=== PATIENT | male | born 1965 | race African-American/Black ===

== ENCOUNTER 2018-08-25 10:55 | Inpatient (IN) | payer OTHER ==
[2018-08-25 11:05] VITALS: BMI 22.2
--- NOTE | 2018-08-25 12:48 | HP ---
COWS - Scale Resting Pulse: 0= [place] 80 or Below Sweatin= Chills/Flushing Restless Observation: 1= Difficult to Sit Still Pupil Size: 1= Pupils >than Normal Bone or Joint Aches: 2= Severe Diffuse Aches Runny Nose/ Eye Tearin= Runny Nose/Eyes GI Upset > 30mins: 2= Nausea/Diarrhea Tremor Observation: 2= Slight Tremor Visible Yawning Observation: 2= >3x During Session Anxiety or Irritability: 2=Irritable/Anxious Goose Flesh Skin: 0=Smooth Skin COWS Score: 15 CIWA Score Nausea/Vomitin Muscle Tremors: 2 Anxiety: 2 Agitation: 2 Paroxysmal Sweats: 1-Minimal Palms Moist Orientation: 0-Oriented Tacttile Disturbances: 1-Very Mild Itch/Numbness Auditory Disturbances: 1-Very Mild Visual Disturbances: 0-None Headache: 2-Mild CIWA-Ar Total Score: 13 - Admission Criteria [facility]ASAS Guidelines: Admission for Medically Managed Detox: Requires at least one of the followin. CIWA greater than 12 2. Seizures within the past 24 hours 3. Delirium tremens within the past 24 hours 4. Hallucinations within the past 24 hours 5. Acute intervention needed for co occurring medical disorder 6. Acute intervention needed for co occurring psychiatric disorder 7. Severe withdrawal that cannot be handled at a lower level of care (continued vomiting, continued diarrhea, abnormal vital signs) requiring intravenous medication and/or fluids 8. Patient presents the following: CIWA greater than 12 Admission Criteria Met: Admission criteria met Admission ROS [facility] Chief Complaint: i need help to stop heroin,alcohol,and cocaine Allergies/Adverse Reactions: Allergies Allergy/AdvReac Type Severity Reaction Status Date / Time Penicillins Allergy Severe Difficulty Verified 08/25/18 12:10 Breathing History of Present Illness: this 52 years old with heroin,alcohol and cocaine dependence,seeing detox, withdrawal symptom,last detox 10/20/15 to 10/24/15 [facility] and rehab 10/24/15 to 11/04/17 history of head injury after using drug on 08/23/18 seen at [facility] ,had cat scan done was told to be negative nicotine dependence weight loss longest period of sobriety 9 months Exam Limitations: No Limitations - Ebola screening Have you traveled outside of the country in the last 21 days: No Have you had contact with anyone from an Ebola affected area: No Have you been sick,other than usual withdrawal symptoms: No Do you have a fever: No - Review of Systems Constitutional: Chills, Loss of Appetite, Malaise, Night Sweats, Changes in sleep, Unintentional Wgt. Loss EENT: reports: Tearing, Nose Congestion, Other (abrasion of frontal area) Respiratory: reports: No Symptoms reported Cardiac: reports: No Symptoms Reported GI: reports: Diarrhea, Nausea, Abdominal cramping : reports: No Symptoms Reported Musculoskeletal: reports: Back Pain, Joint Pain, Muscle Pain, Joint Stiffness Integumentary: reports: Dryness Neuro: reports: Headache, Tremors Endocrine: reports: No Symptoms Reported Hematology: reports: No Symptoms Reported Psychiatric: reports: No Sypmtoms Reported, Judgement Intact, Mood/Affect Appropiate, Orientated x3 Patient History - Patient Medical History Hx Asthma: Yes (childhood asthma) Hx Chronic Obstructive Pulmonary Disease (COPD): No Hx Cancer: No Hx Cardiac Disorders: No Hx Hypertension: No Hx Hypercholesterolemia: No Hx Pacemaker: No HX Cerebrovascular Accident: No Hx Seizures: No Hx Dementia: No Hx Diabetes: No Hx Gastrointestinal Disorders: No Hx Liver Disease: No Hx Genitourinary Disorders: No Hx Sexually Transmitted Disorders: No Hx Renal Disease (ESRD): No Hx Thyroid Disease: No Hx Human Immunodeficiency Virus (HIV): No (last 04/26 negative) Hx Hepatitis C: No Hx Depression: No Hx Suicide Attempt: No Hx Bipolar Disorder: No Hx Schizophrenia: No Other Medical History: no suicidal,no homicidal,head injury on 08/23/18 [facility] - Patient Surgical History Past Surgical History: No Hx Neurologic Surgery: No Hx Cataract Extraction: No Hx Cardiac Surgery: No Hx Lung Surgery: No Hx Breast Surgery: No Hx Breast Biopsy: No Hx Abdominal Surgery: No Hx Appendectomy: No Hx Cholecystectomy: No Hx Genitourinary Surgery: No Hx Section: No Hx Orthopedic Surgery: No Anesthesia Reaction: No - PPD History Previous Implant?: Yes Documented Results: Negative w/proof Implanted On Prior [facility] Admission?: Yes Date: 10/22/15 Results: 0 mm PPD to be Administered?: Yes - Smoking Cessation Smoking history: Current every day smoker Have you smoked in the past 12 months: Yes Aproximately how many cigarettes per day: 20 Hx Chewing Tobacco Use: No Initiated information on smoking cessation: Yes 'Breaking Loose' booklet given: 08/25/18 - Substance & Tx. History Hx Alcohol Use: Yes Hx Substance Use: Yes Substance Use Type: Alcohol, Cocaine, Heroin Hx Substance Use Treatment: Yes ([facility] 10/20/15 to 08/24/16 detox and 10/24/15 to 11/04/15) - Substances Abused Heroin Route: Injection Frequency: Daily Amount used: 4 BAGS Age of first use: 21 Date of Last Use: 08/23/18 Alcohol Route: Oral Frequency: Daily Amount used: 1/2 PINT OF VODKA, 6 CANS OF BEER (16 OUNCES) Age of first use: 14 Date of Last Use: 08/25/18 Cocaine Route: Inhalation Frequency: 1-2 times per week Amount used: 1 DIME Age of first use: 23 Date of Last Use: 08/22/18 Family Disease History - Family Disease History Family History: Denies Admission Physical Exam S - Vital Signs Vital Signs: Vital Signs - 24 hr 08/25/18 10:59 Temperature 97.4 F L Pulse Rate 71 Respiratory 18 Rate Blood Pressure 127/80 - Physical General Appearance: Yes: Moderate Distress, Tremorous, Irritable, Sweating, Anxious HEENTM: Yes: Normal ENT Inspection, JO-ANN, Pharynx Normal, Other (abrasion of frontal area) Respiratory: Yes: Lungs Clear, Normal Breath Sounds, No Respiratory Distress Neck: Yes: Within Normal Limits, Supple, Trachea in good position Breast: Yes: Within Normal Limits Cardiology: Yes: Within Normal Limits, Regular Rhythm, Regular Rate, S1, S2 Abdominal: Yes: Within Normal Limits, Normal Bowel Sounds, Non Tender, Flat, Soft Genitourinary: Yes: Within Normal Limits Back: Yes: Muscle Spasm Musculoskeletal: Yes: full range of Motion, Back pain, Muscle Pain Extremities: Yes: Tremors Neurological: Yes: sales promoter II-XII NML intact, Fully Oriented, Alert, Motor Strength 5/5 Integumentary: Yes: Dry Lymphatic: Yes: Within Normal Limits - Diagnostic (1) Opioid dependence with withdrawal Current Visit: Yes Status: Acute (2) Alcohol dependence with uncomplicated withdrawal Current Visit: No Status: Acute (3) Cocaine dependence Current Visit: Yes Status: Acute Qualifiers: Substance use status: uncomplicated Qualified Code(s): F14.20 - Cocaine dependence, uncomplicated (4) Asthma Current Visit: No Status: Chronic Qualifiers: Asthma severity: mild Asthma persistence: intermittent Asthma complication type: uncomplicated (5) Nicotine dependence Current Visit: No Status: Chronic Qualifiers: Nicotine product type: cigarettes Substance use status: uncomplicated Qualified Code(s): F17.210 - Nicotine dependence, cigarettes, uncomplicated (6) Syncope Current Visit: Yes Status: Acute (7) History of head injury Current Visit: Yes Status: Acute (8) Abrasion Current Visit: Yes Status: Acute Cleared for Admission [facility] - Detox or Rehab [facility] Level of Care: Medically Managed Detox Regimen/Protocol: Methadone/Librium [facility] Breath Alcohol Content Breath Alcohol Content: 0.041 Urine Drug Screen - Results Drug Screen Negative: No Urine Drug Screen Results: PETER-Cocaine, OPI-Opiates, OXY-Oxycodone, FEN-Fentanyl
[2018-08-25] MEDS ORDERED: LOPERAMIDE HCL 2 MG CAPSULE PO PRN (12:58)
[2018-08-25] MEDS ORDERED: P-EPHED 60MG/TRIPROLIDI 2.5MG TABLET PO PRN (12:58)
[2018-08-25] MEDS ORDERED: hydrOXYzine PAMOATE 25 MG CAPSULE (FP) PO PRN (12:58)
[2018-08-25] MEDS ORDERED: MAGNESIUM CITRATE 300 ML BOTTLE PO PRN (12:58)
[2018-08-25] MEDS ORDERED: MENTHOL/PHENOL 1 EACH UD MM PRN (12:58)
[2018-08-25] MEDS ORDERED: chlordiazePOXIDE HCL 25 MG CAPSULE PO PRN (12:58)
[2018-08-25] MEDS ORDERED: guaiFENesin/D-METHORPHAN HB 10 ML UNIT-DOSE CUPS PO PRN (12:58)
[2018-08-25] MEDS ORDERED: IBUPROFEN 400 MG TABLET (FP) PO PRN (12:58)
[2018-08-25] MEDS ORDERED: MAGNESIUM HYDROX 2400MG/30ML ORAL SUSPENSION 30 ML CUP PO PRN (12:58)
[2018-08-25] MEDS ORDERED: MAG HYDROX/AL HYDROX/SIMETH 30 ML UNIT-DOSE CUP PO PRN (12:58)
[2018-08-25] MEDS ORDERED: METHADONE HCL 10 MG TABLET (FOR DETOX USE ONLY) PO ONE ×2 (14:15→23:00)
[2018-08-25] MEDS ORDERED: TRIMETHOBENZAMIDE HCL 200MG/2ML INJ IM ONE (16:14)
[2018-08-25] MEDS: BACITRACIN 0.9 GM PACKET TP SCH ×2 (16:40→23:10)
[2018-08-25] MEDS: chlordiazePOXIDE HCL 25 MG CAPSULE PO SCH ×2 (16:41→23:10)
[2018-08-25] MEDS ORDERED: MELATONIN 5 MG TABLETS PO PRN (22:00)
[2018-08-25] MEDS: THIAMINE HCL 100 MG TABLET (FP) PO SCH (23:09)
[2018-08-25 23:32] LABS: URINE APPEARANCE TURBID; URINE BILIRUBIN NEGATIVE (<2.0 mg/dL); URINE COLOR AMBER; URINE GLUCOSE (UA) 3+ (NEGATIVE); URINE KETONE 1+ (NEGATIVE); URINE LEUK ESTERASE 1+ (NEGATIVE); URINE NITRITE NEGATIVE (NEGATIVE); URINE PROTEIN 1+ (NEGATIVE); URINE UROBILINOGEN 4.0 E.U/dl mg/dL (0.2-1.0)
[2018-08-25 23:44] LABS: EPI CELLS RARE /HPF (FEW); URINE BACTERIA MANY /hpf (NONE SEEN); URINE MUCUS MODERATE
[2018-08-26] MEDS: chlordiazePOXIDE HCL 25 MG CAPSULE PO SCH ×4 (05:08→22:41)
[2018-08-26] MEDS ORDERED: METHADONE HCL 10 MG TABLET (FOR DETOX USE ONLY) PO SCH (10:00)
[2018-08-26] MEDS: BACITRACIN 0.9 GM PACKET TP SCH ×2 (10:42→22:41)
[2018-08-26] MEDS: PRENATAL VITAMINS W/ FOLIC ACID TABLET (FP) PO SCH (10:42)
[2018-08-26 10:55] LABS: HEMATOCRIT 48.1 % (35.4-49); HEMOGLOBIN 15.4 GM/dL (11.7-16.9); MCH 28.1 pg (25.7-33.7); MEAN CELL VOLUME 87.8 fl (80-96); MEAN PLT VOLUME 9.1 fl (7.5-11.1); PLATELET COUNT 275 K/MM3 (134-434); RBC 5.47 M/mm3 (4.00-5.60); RDW 14.2 % (11.9-15.9); WHITE BLOOD COUNT 6.2 K/mm3 (4.0-10.0)
[2018-08-26 11:00] LABS: ALBUMIN 3.7 g/dl (3.4-5.0); ALK PHOS 101 U/L (45-117); ANION GAP 9 MMOL/L (8-16); BILIRUBIN,TOTAL 1.9 mg/dL (0.2-1); BLOOD UREA NITROGEN 13 mg/dL (7-18); CALCIUM 9.4 mg/dL (8.5-10.1); CHLORIDE 101 mmol/L (98-107); CO2 27 mmol/L (21-32); CREATININE 0.7 mg/dL (0.55-1.3); GLUCOSE,RANDOM 105 mg/dL (74-106); SGOT/AST 48 U/L (15-37); SGPT/ALT 33 U/L (13-61); SODIUM 137 mmol/L (136-145); TOT PROT 7.5 g/dl (6.4-8.2)
--- NOTE | 2018-08-26 11:01 | PN ---
[facility] CI[facility] - CIWA Score Nausea/Vomitin Muscle Tremors: 2 Anxiety: 2 Agitation: 2 Paroxysmal Sweats: 2 Orientation: 0-Oriented Tacttile Disturbances: 2-Mild Itch/Numbness/Burn Auditory Disturbances: 0-None Visual Disturbances: 0-None Headache: 1-Very Mild CIWA-Ar Total Score: 13 [facility] COWS - Scale Resting Pulse: 0= [place] 80 or Below Sweatin= Chills/Flushing Restless Observation: 1= Difficult to Sit Still Pupil Size: 0= Normal to Room Light Bone or Joint Aches: 2= Severe Diffuse Aches Runny Nose/ Eye Tearin= Nasal Congestion GI Upset > 30mins: 2= Nausea/Diarrhea Tremor Observation of Outstretched Hands: 2= Slight Tremor Visible Yawning Observation: 0= None Anxiety or Irritability: 1=Feels Anxious/Irritable Goose Flesh Skin: 0=Smooth Skin COWS Score: 10 [facility] Progress Note (SOAP) Subjective: Interrupted sleep, abdominal cramps and malaise Objective: 08/26/18 10:59 Vital Signs 08/26/18 08/26/18 08/26/18 03:30 06:00 09:24 Temperature 98.4 F 98.2 F Pulse Rate 58 L 58 L Respiratory 18 18 18 Rate Blood Pressure 142/64 133/78 Laboratory Last Values Urine Color Cora 08/25/18 15:42 Urine Appearance Turbid 08/25/18 15:42 Urine pH 5.0 (5.0-8.0) 08/25/18 15:42 Ur Specific [place] 1.022 (1.010-1.035) 08/25/18 15:42 Urine Protein 1+ (NEGATIVE) H 08/25/18 15:42 Urine Glucose (UA) 3+ (NEGATIVE) H 08/25/18 15:42 Urine Ketones 1+ (NEGATIVE) H 08/25/18 15:42 Urine Blood 2+ (NEGATIVE) H 08/25/18 15:42 Urine Nitrite Negative (NEGATIVE) 08/25/18 15:42 Urine Bilirubin Negative (<2.0 mg/dL) 08/25/18 15:42 Urine Urobilinogen 4.0 e.u/dl mg/dL (0.2-1.0) 08/25/18 15:42 Ur Leukocyte Esterase 1+ (NEGATIVE) H 08/25/18 15:42 Urine WBC (Auto) 25 /hpf (3-5) 08/25/18 15:42 Urine RBC (Auto) <1 /hpf (0-3) 08/25/18 15:42 Ur Epithelial Cells Rare /HPF (FEW) 08/25/18 15:42 Urine Bacteria Many /hpf (NONE SEEN) 08/25/18 15:42 Urine Mucus Moderate 08/25/18 15:42 UA noted, possible contamination due to presence of epithelial cells, denies dysuria, hematuria or flank pain CBC/CMP pending Assessment: 08/26/18 11:00 Withdrawal sx Plan: Continue detox
[2018-08-26] MEDS: THIAMINE HCL 100 MG TABLET (FP) PO SCH (22:41)
[2018-08-26] MEDS: ACETAMINOPHEN 325 MG TABLET (FP) PO PRN (22:42)
[2018-08-27] MEDS: chlordiazePOXIDE HCL 25 MG CAPSULE PO SCH ×2 (06:24→11:30)
[2018-08-27] MEDS: BACITRACIN 0.9 GM PACKET TP SCH ×2 (11:30→23:07)
[2018-08-27] MEDS: PRENATAL VITAMINS W/ FOLIC ACID TABLET (FP) PO SCH (11:30)
[2018-08-27] MEDS: METHADONE HCL 5 MG TABLET (FOR DETOX USE ONLY) PO SCH (11:30)
--- NOTE | 2018-08-27 13:50 | PN ---
[facility] CIWA - CIWA Score Nausea/Vomitin-Mild Nausea/No Vomiting Muscle Tremors: 3 Anxiety: 3 Agitation: 2 Paroxysmal Sweats: 1-Minimal Palms Moist Orientation: 0-Oriented Tacttile Disturbances: 1-Very Mild Itch/Numbness Auditory Disturbances: 0-None Visual Disturbances: 0-None Headache: 1-Very Mild CIWA-Ar Total Score: 12 S COWS - Scale Resting Pulse: 0= [place] 80 or Below Sweatin= Chills/Flushing Restless Observation: 1= Difficult to Sit Still Pupil Size: 0= Normal to Room Light Bone or Joint Aches: 2= Severe Diffuse Aches Runny Nose/ Eye Tearin= Nasal Congestion GI Upset > 30mins: 2= Nausea/Diarrhea Tremor Observation of Outstretched Hands: 1= Tremor [place], Not Seen Yawning Observation: 1= 1-2x During Session Anxiety or Irritability: 1=Feels Anxious/Irritable Goose Flesh Skin: 0=Smooth Skin COWS Score: 10 [facility] Progress Note (SOAP) Subjective: tremor sweat body aches joints pain restlessness diarrhea Objective: 08/27/18 13:51 Vital Signs Temperature 99 F 08/27/18 10:13 Pulse Rate 63 08/27/18 10:13 Respiratory Rate 18 08/27/18 10:13 Blood Pressure 116/77 08/27/18 10:13 O2 Sat by Pulse Oximetry (%) Laboratory Last Values WBC 6.2 K/mm3 (4.0-10.0) 08/26/18 08:00 RBC 5.47 M/mm3 (4.00-5.60) 08/26/18 08:00 Hgb 15.4 GM/dL (11.7-16.9) 08/26/18 08:00 Hct 48.1 % (35.4-49) 08/26/18 08:00 MCV 87.8 fl (80-96) 08/26/18 08:00 MCH 28.1 pg (25.7-33.7) 08/26/18 08:00 MCHC 32.0 g/dl (32.0-35.9) 08/26/18 08:00 RDW 14.2 % (11.9-15.9) 08/26/18 08:00 Plt Count 275 K/MM3 (134-434) 08/26/18 08:00 MPV 9.1 fl (7.5-11.1) 08/26/18 08:00 Sodium 137 mmol/L (136-145) 08/26/18 08:00 Potassium 4.0 mmol/L (3.5-5.1) 08/26/18 08:00 Chloride 101 mmol/L (98-107) 08/26/18 08:00 Carbon Dioxide 27 mmol/L (21-32) 08/26/18 08:00 Anion Gap 9 MMOL/L (8-16) 08/26/18 08:00 BUN 13 mg/dL (7-18) 08/26/18 08:00 Creatinine 0.7 mg/dL (0.55-1.3) 08/26/18 08:00 Creat Clearance w eGFR > 60 (>60) 08/26/18 08:00 Random Glucose 105 mg/dL (74-106) 08/26/18 08:00 Calcium 9.4 mg/dL (8.5-10.1) 08/26/18 08:00 Total Bilirubin 1.9 mg/dL (0.2-1) H 08/26/18 08:00 AST 48 U/L (15-37) H 08/26/18 08:00 ALT 33 U/L (13-61) 08/26/18 08:00 Alkaline Phosphatase 101 U/L (45-117) 08/26/18 08:00 Total Protein 7.5 g/dl (6.4-8.2) 08/26/18 08:00 Albumin 3.7 g/dl (3.4-5.0) 08/26/18 08:00 Urine Color Cora 08/25/18 15:42 Urine Appearance Turbid 08/25/18 15:42 Urine pH 5.0 (5.0-8.0) 08/25/18 15:42 Ur Specific [place] 1.022 (1.010-1.035) 08/25/18 15:42 Urine Protein 1+ (NEGATIVE) H 08/25/18 15:42 Urine Glucose (UA) 3+ (NEGATIVE) H 08/25/18 15:42 Urine Ketones 1+ (NEGATIVE) H 08/25/18 15:42 Urine Blood 2+ (NEGATIVE) H 08/25/18 15:42 Urine Nitrite Negative (NEGATIVE) 08/25/18 15:42 Urine Bilirubin Negative (<2.0 mg/dL) 08/25/18 15:42 Urine Urobilinogen 4.0 e.u/dl mg/dL (0.2-1.0) 08/25/18 15:42 Ur Leukocyte Esterase 1+ (NEGATIVE) H 08/25/18 15:42 Urine WBC (Auto) 25 /hpf (3-5) 08/25/18 15:42 Urine RBC (Auto) <1 /hpf (0-3) 08/25/18 15:42 Ur Epithelial Cells Rare /HPF (FEW) 08/25/18 15:42 Urine Bacteria Many /hpf (NONE SEEN) 08/25/18 15:42 Urine Mucus Moderate 08/25/18 15:42 RPR Titer Nonreactive (NONREACTIVE) 08/26/18 08:00 lab noted repeat ua 08/27/18 13:53 Assessment: 08/27/18 13:54 withdrawal sx Plan: continue detox
[2018-08-27] MEDS: chlordiazePOXIDE 5 MG CAPSULE PO SCH ×2 (18:07→23:07)
[2018-08-27] MEDS: THIAMINE HCL 100 MG TABLET (FP) PO SCH (23:08)
[2018-08-28] MEDS: chlordiazePOXIDE 5 MG CAPSULE PO SCH ×2 (06:50→10:15)
--- NOTE | 2018-08-28 07:42 | PN ---
[facility] Progress Note Note: MD'S NOTE: INFORMED AT ABOUT 7.20AM THAT PT. WHILE SLEEPING HIT BACK OF THE HEAD VERY LIGHTLY AGAINST A TABLE. DENIES: LOC, PAIN, INJURY AND NOC O/E: THE PT. IS RESTING COMFORTABLY AND NOT IN DISTRESS L/E: HEAD: OLD INJURY IN THE FRONTAL REGION WITH HEALING SCAB+ NO NEURO DEFICITS NOTED AT THIS TIME NO TENDERNESS NOTED OTHERWISE NO OTHER VISIBLE INJURIES OR FRACTURES NOTED CLINICALLY S/E: LUNGS: VESICULAR BREATH SOUNDS, NO RALES, NO RHONCHI OR WHEEZING CVS: -JVD, NL HEART SOUNDS, NO MURMURS ABD: SOFT, NT, B.S.+ IMPRESSION: SOFT TISSUE INJURY - BACK OF THE HEAD PLANS: PROTOCOL #1 OBSERVATION WITH FALL PRECAUTIONS PROVIDER: JUAN CASTORENA MD
[2018-08-28] MEDS: PRENATAL VITAMINS W/ FOLIC ACID TABLET (FP) PO SCH (09:15)
--- NOTE | 2018-08-28 09:33 | PN ---
[facility] Progress Note (SOAP) Subjective: feeling weak, sleepy, back of head lightly pump to bad side table no visible injury, denies pain tolerate fluid well mild gi distress encourage maalox as needed muscle cramp tremor sweat discontinue vistaril and librium prnl Objective: 08/28/18 09:39 Vital Signs Temperature 97.7 F 08/28/18 09:13 Pulse Rate 79 08/28/18 09:13 Respiratory Rate 16 08/28/18 09:13 Blood Pressure 122/58 L 08/28/18 09:13 O2 Sat by Pulse Oximetry (%) Laboratory Last Values WBC 6.2 K/mm3 (4.0-10.0) 08/26/18 08:00 RBC 5.47 M/mm3 (4.00-5.60) 08/26/18 08:00 Hgb 15.4 GM/dL (11.7-16.9) 08/26/18 08:00 Hct 48.1 % (35.4-49) 08/26/18 08:00 MCV 87.8 fl (80-96) 08/26/18 08:00 MCH 28.1 pg (25.7-33.7) 08/26/18 08:00 MCHC 32.0 g/dl (32.0-35.9) 08/26/18 08:00 RDW 14.2 % (11.9-15.9) 08/26/18 08:00 Plt Count 275 K/MM3 (134-434) 08/26/18 08:00 MPV 9.1 fl (7.5-11.1) 08/26/18 08:00 Sodium 137 mmol/L (136-145) 08/26/18 08:00 Potassium 4.0 mmol/L (3.5-5.1) 08/26/18 08:00 Chloride 101 mmol/L (98-107) 08/26/18 08:00 Carbon Dioxide 27 mmol/L (21-32) 08/26/18 08:00 Anion Gap 9 MMOL/L (8-16) 08/26/18 08:00 BUN 13 mg/dL (7-18) 08/26/18 08:00 Creatinine 0.7 mg/dL (0.55-1.3) 08/26/18 08:00 Creat Clearance w eGFR > 60 (>60) 08/26/18 08:00 Random Glucose 105 mg/dL (74-106) 08/26/18 08:00 Calcium 9.4 mg/dL (8.5-10.1) 08/26/18 08:00 Total Bilirubin 1.9 mg/dL (0.2-1) H 08/26/18 08:00 AST 48 U/L (15-37) H 08/26/18 08:00 ALT 33 U/L (13-61) 08/26/18 08:00 Alkaline Phosphatase 101 U/L (45-117) 08/26/18 08:00 Total Protein 7.5 g/dl (6.4-8.2) 08/26/18 08:00 Albumin 3.7 g/dl (3.4-5.0) 08/26/18 08:00 Urine Color Cora 08/25/18 15:42 Urine Appearance Turbid 08/25/18 15:42 Urine pH 5.0 (5.0-8.0) 08/25/18 15:42 Ur Specific [place] 1.022 (1.010-1.035) 08/25/18 15:42 Urine Protein 1+ (NEGATIVE) H 08/25/18 15:42 Urine Glucose (UA) 3+ (NEGATIVE) H 08/25/18 15:42 Urine Ketones 1+ (NEGATIVE) H 08/25/18 15:42 Urine Blood 2+ (NEGATIVE) H 08/25/18 15:42 Urine Nitrite Negative (NEGATIVE) 08/25/18 15:42 Urine Bilirubin Negative (<2.0 mg/dL) 08/25/18 15:42 Urine Urobilinogen 4.0 e.u/dl mg/dL (0.2-1.0) 08/25/18 15:42 Ur Leukocyte Esterase 1+ (NEGATIVE) H 08/25/18 15:42 Urine WBC (Auto) 25 /hpf (3-5) 08/25/18 15:42 Urine RBC (Auto) <1 /hpf (0-3) 08/25/18 15:42 Ur Epithelial Cells Rare /HPF (FEW) 08/25/18 15:42 Urine Bacteria Many /hpf (NONE SEEN) 08/25/18 15:42 Urine Mucus Moderate 08/25/18 15:42 RPR Titer Nonreactive (NONREACTIVE) 08/26/18 08:00 lab noted repeat ua Assessment: 08/28/18 09:41 withdrawal sx Plan: continue detox
[2018-08-28] MEDS: METHADONE HCL 5 MG TABLET (FOR DETOX USE ONLY) PO SCH (10:15)
[2018-08-28] MEDS: BACITRACIN 0.9 GM PACKET TP SCH ×2 (10:15→23:12)
--- NOTE | 2018-08-28 10:58 | PN ---
[facility] Progress Note Note: pt states he was cleaning his bed off and lost his balance. pt states he fell and landed on his back and back of his head. no s/s blurred vision, no BOGGS, no bumps or bruising noted to the back of his head. Pt has an old laceration healing process noted. pt agreed to go to [facility] for evaluation. report given to Dr. Rosas for eval.
--- NOTE | 2018-08-28 16:16 | PN ---
S Progress Note Note: Patient returns from [facility] ER after being evaluated for a fall. CT scan report was negative for inter-cranial bleed. Patient is alert and oriented. B/P: 109/59; HR; 81; R: 18; T: 98.1 Discussed safety concerns and need to change positions slowly and to avoid bending/ Patient verbalized an understanding.
[2018-08-28] MEDS: chlordiazePOXIDE HCL 10 MG CAPSULE PO SCH ×2 (17:37→23:12)
[2018-08-28] MEDS: THIAMINE HCL 100 MG TABLET (FP) PO SCH (23:12)
--- NOTE | 2018-08-28 23:56 | EKG ---
Test Reason : Blood Pressure : / mmHG Vent. Rate : 060 BPM Atrial Rate : 060 BPM P-R Int : 132 ms QRS Dur : 098 ms QT Int : 430 ms P-R-T Axes : 056 075 061 degrees QTc Int : 430 ms NORMAL SINUS RHYTHM NORMAL ECG NO PREVIOUS ECGS AVAILABLE Confirmed by LAURENT IBRAHIM MD ([id number]) on 08/28/2018 11:55:28 PM Referred By: Confirmed By:LAURENT IBRAHIM MD
[2018-08-29] MEDS: chlordiazePOXIDE HCL 10 MG CAPSULE PO SCH ×2 (06:17→10:54)
[2018-08-29] MEDS: ACETAMINOPHEN 325 MG TABLET (FP) PO PRN (06:17)
[2018-08-29] MEDS ORDERED: METHADONE HCL 10 MG TABLET (FOR DETOX USE ONLY) PO SCH (10:00)
--- NOTE | 2018-08-29 10:25 | PN ---
S Progress Note (SOAP) Subjective: patient lost balance x 2 on 08/28/[address] return to [facility] for alcohol and opiate detox patient is alert denies pain had breakfast encourage to shower today stated that no alcohol withdrawal sx today mild back pain strong recommend changing position slowly Objective: 08/29/18 10:37 Vital Signs Temperature 99.9 F H 08/29/18 09:32 Pulse Rate 111 H 08/29/18 09:32 Respiratory Rate 16 08/29/18 09:32 Blood Pressure 115/85 08/29/18 09:32 O2 Sat by Pulse Oximetry (%) Laboratory Last Values WBC 6.2 K/mm3 (4.0-10.0) 08/26/18 08:00 RBC 5.47 M/mm3 (4.00-5.60) 08/26/18 08:00 Hgb 15.4 GM/dL (11.7-16.9) 08/26/18 08:00 Hct 48.1 % (35.4-49) 08/26/18 08:00 MCV 87.8 fl (80-96) 08/26/18 08:00 MCH 28.1 pg (25.7-33.7) 08/26/18 08:00 MCHC 32.0 g/dl (32.0-35.9) 08/26/18 08:00 RDW 14.2 % (11.9-15.9) 08/26/18 08:00 Plt Count 275 K/MM3 (134-434) 08/26/18 08:00 MPV 9.1 fl (7.5-11.1) 08/26/18 08:00 Sodium 137 mmol/L (136-145) 08/26/18 08:00 Potassium 4.0 mmol/L (3.5-5.1) 08/26/18 08:00 Chloride 101 mmol/L (98-107) 08/26/18 08:00 Carbon Dioxide 27 mmol/L (21-32) 08/26/18 08:00 Anion Gap 9 MMOL/L (8-16) 08/26/18 08:00 BUN 13 mg/dL (7-18) 08/26/18 08:00 Creatinine 0.7 mg/dL (0.55-1.3) 08/26/18 08:00 Creat Clearance w eGFR > 60 (>60) 08/26/18 08:00 Random Glucose 105 mg/dL (74-106) 08/26/18 08:00 Calcium 9.4 mg/dL (8.5-10.1) 08/26/18 08:00 Total Bilirubin 1.9 mg/dL (0.2-1) H 08/26/18 08:00 AST 48 U/L (15-37) H 08/26/18 08:00 ALT 33 U/L (13-61) 08/26/18 08:00 Alkaline Phosphatase 101 U/L (45-117) 08/26/18 08:00 Total Protein 7.5 g/dl (6.4-8.2) 08/26/18 08:00 Albumin 3.7 g/dl (3.4-5.0) 08/26/18 08:00 Urine Color [place] 08/25/18 15:42 Urine Appearance Turbid 08/25/18 15:42 Urine pH 5.0 (5.0-8.0) 08/25/18 15:42 Ur Specific [place] 1.022 (1.010-1.035) 08/25/18 15:42 Urine Protein 1+ (NEGATIVE) H 08/25/18 15:42 Urine Glucose (UA) 3+ (NEGATIVE) H 08/25/18 15:42 Urine Ketones 1+ (NEGATIVE) H 08/25/18 15:42 Urine Blood 2+ (NEGATIVE) H 08/25/18 15:42 Urine Nitrite Negative (NEGATIVE) 08/25/18 15:42 Urine Bilirubin Negative (<2.0 mg/dL) 08/25/18 15:42 Urine Urobilinogen 4.0 e.u/dl mg/dL (0.2-1.0) 08/25/18 15:42 Ur Leukocyte Esterase 1+ (NEGATIVE) H 08/25/18 15:42 Urine WBC (Auto) 25 /hpf (3-5) 08/25/18 15:42 Urine RBC (Auto) <1 /hpf (0-3) 08/25/18 15:42 Ur Epithelial Cells Rare /HPF (FEW) 08/25/18 15:42 Urine Bacteria Many /hpf (NONE SEEN) 08/25/18 15:42 Urine Mucus Moderate 08/25/18 15:42 RPR Titer Nonreactive (NONREACTIVE) 08/26/18 08:00 lab noted bactrim ds bid for uti Assessment: 08/29/18 10:38 mild withdrawal sx Plan: medically supervised detox
[2018-08-29] MEDS: PRENATAL VITAMINS W/ FOLIC ACID TABLET (FP) PO SCH (10:54)
[2018-08-29] MEDS: SULFAMETHOXAZOLE/TRIMETHOPRIM 800MG/160MG D.S. TABLET PO SCH ×2 (10:54→22:41)
[2018-08-29] MEDS: BACITRACIN 0.9 GM PACKET TP SCH ×2 (10:54→22:41)
[2018-08-29] MEDS: BUDESONIDE/FORMETEROL FUMARATE 80/4.5 mcg INHALER IH SCH ×2 (11:10→22:42)
[2018-08-29] MEDS: ASPIRIN 81 MG CHEWABLE TABLETS PO SCH (11:10)
[2018-08-29 15:26] LABS: URINE APPEARANCE SLCLOUDY; URINE BILIRUBIN NEGATIVE (<2.0 mg/dL); URINE COLOR LTYELLOW; URINE GLUCOSE (UA) NEGATIVE (NEGATIVE); URINE KETONE NEGATIVE (NEGATIVE); URINE LEUK ESTERASE 1+ (NEGATIVE); URINE NITRITE NEGATIVE (NEGATIVE); URINE PROTEIN NEGATIVE (NEGATIVE); URINE UROBILINOGEN NEGATIVE mg/dL (0.2-1.0)
[2018-08-29 15:31] LABS: EPI CELLS RARE /HPF (FEW); URINE BACTERIA RARE /hpf (NONE SEEN)
[2018-08-29] MEDS: LACTULOSE 20 GM/30 ML UDC (FOR ORAL USE ONLY) PO SCH ×2 (16:04→22:43)
[2018-08-29] MEDS: THIAMINE HCL 100 MG TABLET (FP) PO SCH (22:41)
[2018-08-30] MEDS: LACTULOSE 20 GM/30 ML UDC (FOR ORAL USE ONLY) PO SCH (05:38)
[2018-08-30] MEDS ORDERED: METHADONE HCL 5 MG TABLET (FOR DETOX USE ONLY) PO SCH (06:00)
[2018-08-30] MEDS ORDERED: IBUPROFEN 400 MG TABLET (FP) PO ONE (06:30)
--- NOTE | 2018-08-30 06:34 | PN ---
ARIANA Progress Note Note: Patient complained of left shoulder pain rated at 8/10 Vital Signs Temperature 99.0 F 08/29/18 17:09 Pulse Rate 78 08/29/18 17:09 Respiratory Rate 18 08/30/18 00:30 Blood Pressure 102/60 08/29/18 17:09 O2 Sat by Pulse Oximetry (%) Action: Ibuprofen 400mg tablet oral ordered
--- NOTE | 2018-08-30 09:12 | DS ---
[facility] Detox Discharge Summary Admission Date: 08/25/18 Discharge Date: 08/30/18 - History Present History: Alcohol Dependence, Opioid Dependence Additional Comments: 52 years old male admitted on 08/25/18 for alcohol and opiate withdrawal sx completed alcohol and opiate detox regimen tolerated well, denies alcohol and opiate withdrawal sx alert oriented x 3 no acute distress aftercare [facility] that the patient refused chemical rehab referral due to he has a dog needs care at home, patient c/o left shoulder pain from fall 4 weeks ago treated at [facility] encourage motrim or tylenal as per patient preferred, patient had left shoulder pain 8/10 episode x 1 doing well with tylenal this morning patient had left shoulder pain episode and patient perferred motrin patient agrees to return to primary care provider in the "[place]" for left shoulder pain and elevation of ammonia patient agrees to greens picker lactulose and follow up with primary care provider patient stated that he has a primary care provider in [place] "he has a funny name " patient can not remember the name of the provider patient agrees to follow up with his primary care provider as well as [facility] ER as needed Pertinent Past History: ADL's independence discussed risks of alcohol and opiate misuse related to negative physical consequences and organs injuries - Physical Exam Results Vital Signs: Vital Signs Temperature 99 F 08/30/18 08:00 Pulse Rate 78 08/30/18 08:00 Respiratory Rate 18 08/30/18 08:00 Blood Pressure 102/68 08/30/18 08:00 O2 Sat by Pulse Oximetry (%) Pertinent Admission Physical Exam Findings: alcohol and opiate withdrawal sx Vital Signs Temperature 99 F 08/30/18 08:00 Pulse Rate 78 08/30/18 08:00 Respiratory Rate 18 08/30/18 08:00 Blood Pressure 102/68 08/30/18 08:00 O2 Sat by Pulse Oximetry (%) Laboratory Last Values WBC 6.2 K/mm3 (4.0-10.0) 08/26/18 08:00 RBC 5.47 M/mm3 (4.00-5.60) 08/26/18 08:00 Hgb 15.4 GM/dL (11.7-16.9) 08/26/18 08:00 Hct 48.1 % (35.4-49) 08/26/18 08:00 MCV 87.8 fl (80-96) 08/26/18 08:00 MCH 28.1 pg (25.7-33.7) 08/26/18 08:00 MCHC 32.0 g/dl (32.0-35.9) 08/26/18 08:00 RDW 14.2 % (11.9-15.9) 08/26/18 08:00 Plt Count 275 K/MM3 (134-434) 08/26/18 08:00 MPV 9.1 fl (7.5-11.1) 08/26/18 08:00 Sodium 137 mmol/L (136-145) 08/26/18 08:00 Potassium 4.0 mmol/L (3.5-5.1) 08/26/18 08:00 Chloride 101 mmol/L (98-107) 08/26/18 08:00 Carbon Dioxide 27 mmol/L (21-32) 08/26/18 08:00 Anion Gap 9 MMOL/L (8-16) 08/26/18 08:00 BUN 13 mg/dL (7-18) 08/26/18 08:00 Creatinine 0.7 mg/dL (0.55-1.3) 08/26/18 08:00 Creat Clearance w eGFR > 60 (>60) 08/26/18 08:00 Random Glucose 105 mg/dL (74-106) 08/26/18 08:00 Calcium 9.4 mg/dL (8.5-10.1) 08/26/18 08:00 Total Bilirubin 1.9 mg/dL (0.2-1) H 08/26/18 08:00 AST 48 U/L (15-37) H 08/26/18 08:00 ALT 33 U/L (13-61) 08/26/18 08:00 Alkaline Phosphatase 101 U/L (45-117) 08/26/18 08:00 Ammonia 64.83 umol/L (11-32) H 08/29/18 09:53 Total Protein 7.5 g/dl (6.4-8.2) 08/26/18 08:00 Albumin 3.7 g/dl (3.4-5.0) 08/26/18 08:00 Urine Color Ltyellow 08/29/18 13:20 Urine Appearance Slcloudy 08/29/18 13:20 Urine pH 7.0 (5.0-8.0) D 08/29/18 13:20 Ur Specific [place] 1.002 (1.010-1.035) L 08/29/18 13:20 Urine Protein Negative (NEGATIVE) 08/29/18 13:20 Urine Glucose (UA) Negative (NEGATIVE) 08/29/18 13:20 Urine Ketones Negative (NEGATIVE) 08/29/18 13:20 Urine Blood Negative (NEGATIVE) 08/29/18 13:20 Urine Nitrite Negative (NEGATIVE) 08/29/18 13:20 Urine Bilirubin Negative (<2.0 mg/dL) 08/29/18 13:20 Urine Urobilinogen Negative mg/dL (0.2-1.0) 08/29/18 13:20 Ur Leukocyte Esterase 1+ (NEGATIVE) H 08/29/18 13:20 Urine WBC (Auto) 2 /hpf (3-5) 08/29/18 13:20 Urine RBC (Auto) 1 /hpf (0-3) 08/29/18 13:20 Ur Epithelial Cells Rare /HPF (FEW) 08/29/18 13:20 Urine Bacteria Rare /hpf (NONE SEEN) 08/29/18 13:20 Urine Mucus Moderate 08/25/18 15:42 RPR Titer Nonreactive (NONREACTIVE) 08/26/18 08:00 lab noted patient agrees to greens picker lactulose from the pharmacy and follow up with his primary care provider health teaching on risks of alchol and opiate misuse related to ammonia elevation - Treatment Hospital Course: Detox Protocol Followed, Detoxed Safely, Responded well, Discharged Condition Good, Rehab Referral Accepted Patient has Accepted a Rehab Referral to: [facility] - Medication Discharge Medications: Ambulatory Orders Albuterol Sulfate Inhaler - [Ventolin HFA Inhaler -] 2 inh PO Q4H PRN 08/29/18 Lactulose (Oral Use) [Cephulac -] 20 gm PO TID #1 udc 08/29/18 Ranitidine [Zantac -] 150 mg PO BID 08/29/18 Tiotropium [place] [Spiriva] 1 inh IH DAILY 08/29/18 - Diagnosis (1) Alcohol dependence with uncomplicated withdrawal Status: Acute (2) Opioid dependence with withdrawal Status: Acute (3) Asthma Status: Chronic Qualifiers: Asthma severity: mild Asthma persistence: intermittent Asthma complication type: uncomplicated (4) Nicotine dependence Status: Acute Qualifiers: Nicotine product type: cigarettes Substance use status: in withdrawal Qualified Code(s): F17.213 - Nicotine dependence, cigarettes, with withdrawal - AMA Did Patient Leave Against Medical Advice: No
[2018-08-30] MEDS: BUDESONIDE/FORMETEROL FUMARATE 80/4.5 mcg INHALER IH SCH (09:37)
[2018-08-30] MEDS: PRENATAL VITAMINS W/ FOLIC ACID TABLET (FP) PO SCH (09:37)
[2018-08-30] MEDS: SULFAMETHOXAZOLE/TRIMETHOPRIM 800MG/160MG D.S. TABLET PO SCH (09:37)
[2018-08-30] MEDS: ASPIRIN 81 MG CHEWABLE TABLETS PO SCH (09:37)
[2018-08-30 09:46] VITALS: BP 108/57; PULSE 89; TEMP 99.3
== END 2018-08-30 09:38 | disposition home or self-care (01) | DRG 773 ==
LOC: YASAS 10:55 → Y6N 14:06
PROC: HZ2ZZZZ Detoxification Services for Substance Abuse Treatment (ICD-10-PCS; principal; 2018-08-25)
PROC: HZ2ZZZZ Detoxification Services for Substance Abuse Treatment (ICD-10-PCS; 2018-08-25)
DX: F11.23 Opioid dependence with withdrawal (principal); F10.230 Alcohol dependence with withdrawal, uncomplicated; F14.20 Cocaine dependence, uncomplicated; F12.20 Cannabis dependence, uncomplicated; F17.213 Nicotine dependence, cigarettes, with withdrawal; R55 Syncope and collapse; N39.0 Urinary tract infection, site not specified; M54.5 Low back pain; G89.29 Other chronic pain; S09.8XXA Other specified injuries of head, initial encounter; W18.39XA Other fall on same level, initial encounter; Y93.89 Activity, other specified; Y92.230 Patient room in hospital as the place of occurrence of the external cause; Y99.8 Other external cause status; J45.20 Mild intermittent asthma, uncomplicated
CPT/HCPCS: 36415; 80053; 81003; 81015; 82140; 85027; 86593; 93005; 93010

== ENCOUNTER 2018-08-28 11:50 | Emergency (ER) | payer OTHER ==
[2018-08-28 11:55] VITALS: BMI 19.5
--- NOTE | 2018-08-28 13:50 | PDOC ---
History of Present Illness - General History Source: Patient Exam Limitations: No Limitations - History of Present Illness Initial Comments: 08/28/18 13:46 52m sent from [facility] for unwitness fall on the head with LOC evaluation. Patient states that he tripped and fell forward losing consciousness for 10min. Not on any blood thinners, just methadone for heroine detox at [facility]. No other medical conditions. Currently complaining of headache. <Cliff Gordon - Last Filed: 08/28/18 14:48> <Kenia Mccall - Last Filed: 08/28/18 16:04> - General Chief Complaint: Injury Stated Complaint: FALL Time Seen by Provider: 08/28/18 12:06 Past History - Past Medical History Asthma: Yes (childhood asthma) Cancer: No Cardiac Disorders: No CVA: No COPD: No Dementia: No Diabetes: No GI Disorders: No Disorders: No HTN: No Hypercholesterolemia: No Kidney Stones: No Liver Disease: No Seizures: No Thyroid Disease: No - Surgical History Abdominal Surgery: No Appendectomy: No Cardiac Surgery: No Cholecystectomy: No Lung Surgery: No Neurologic Surgery: No Orthopedic Surgery: No - Reproductive History Testicular Surgery: No - Suicide/Smoking/Psychosocial Hx Smoking History: Unknown if ever smoked Have you smoked in the past 12 months: Yes Number of Cigarettes Smoked Daily: 20 Information on smoking cessation initiated: No 'Breaking Loose' booklet given: 08/25/18 Hx Alcohol Use: No Drug/Substance Use Hx: No Substance Use Type: Alcohol, Cocaine, Heroin Hx Substance Use Treatment: Yes ([facility] 10/20/15 to 08/24/16 detox and 10/24/15 to 11/04/15) <Cliff Gordon - Last Filed: 08/28/18 14:48> <Kenia Mccall - Last Filed: 08/28/18 16:04> - Past Medical History Allergies/Adverse Reactions: Allergies Allergy/AdvReac Type Severity Reaction Status Date / Time Penicillins Allergy Severe Difficulty Verified 08/28/18 11:55 Breathing Home Medications: Ambulatory Orders NK [No Known Home Medication] 08/25/18 Trauma Specific PMHX - Complaint Specific PMHX Arthritis: No <Cliff Gordon - Last Filed: 08/28/18 14:48> Review of Systems - Review of Systems Able to Perform ROS?: Yes Is the patient limited Korean proficient: No Constitutional: No: Symptoms Reported HEENTM: Yes: See HPI Respiratory: No: Symptoms reported Cardiac (ROS): No: Symptoms Reported ABD/GI: No: Symptoms Reported : No: Symptoms Reported Musculoskeletal: No: Symptoms Reported Integumentary: Yes: Bruising Neurological: Yes: Headache All Other Systems: Reviewed and Negative <Cliff Gordon - Last Filed: 08/28/18 14:48> *Physical Exam - Vital Signs Last Vital Signs Temp Pulse Resp BP Pulse Ox 98.6 F 84 16 114/69 100 08/28/18 11:53 08/28/18 11:53 08/28/18 11:53 08/28/18 11:53 08/28/18 11:53 - Physical Exam General Appearance: Yes: Thin, Other (sleepy) HEENT: positive: Other (hematoma on forhead. ) Respiratory/Chest: positive: Lungs Clear, Normal Breath Sounds. negative: Chest Tender, Respiratory Distress Cardiovascular: positive: Regular Rhythm, Regular Rate, S1, S2 Gastrointestinal/Abdominal: positive: Normal Bowel Sounds, Flat, Soft. negative : Tender Musculoskeletal: positive: Normal Inspection. negative: CVA Tenderness Neurologic: positive: Fully Oriented, Alert (but drowsy), Normal Response, Motor Strength 5/5 <Cliff Gordon - Last Filed: 08/28/18 14:48> - Vital Signs Last Vital Signs Temp Pulse Resp BP Pulse Ox 98.3 F 89 18 128/71 100 08/28/18 15:45 08/28/18 15:45 08/28/18 15:45 08/28/18 15:45 08/28/18 15:45 <Kenia Mccall - Last Filed: 08/28/18 16:04> ED Treatment Course - RADIOLOGY Radiology Studies Ordered: Category Date Time Status HEAD CT WITHOUT CONTRAST [CT] Stat CT Scan 08/28/18 12:11 Ordered <Cliff Gordon - Last Filed: 08/28/18 14:48> Medical Decision Making - Medical Decision Making 08/28/18 13:49 52m on detox for heroin sent from [facility] for unwitnessed fall with LOC. Will obtain head ct as per fall protocol. 08/28/18 14:[address] negative for acute processes. Will send back to [facility]. <Cliff Gordon - Last Filed: 08/28/18 14:48> *DC/Admit/Observation/Transfer - Discharge Dispostion Decision to Admit order: No <Cliff Gordon - Last Filed: 08/28/18 14:48> - Attestations Physician Attestion: I reviewed the case with the mid-level practitioner and agree with the mid- level practitioner's assessment, diagnosis and disposition. <Kenia Mccall - Last Filed: 08/28/18 16:04> Diagnosis at time of Disposition: Closed head injury - Discharge Dispostion Disposition: HOME Condition at time of disposition: Stable - Patient Instructions Printed Discharge Instructions: How to Prevent Falls, DI for Closed Head Injury Additional Instructions: Come back to the Emergency Department for any new, worsening or concerning symptom. Follow up with your primary care provider within the week.
--- NOTE | 2018-08-28 15:00 | PDOC ---
Attending Attestation - HPI HPI: 08/28/18 15:00 The patient is a 52 year old male with a history of heroin use, coming from [facility] detox, presents to the emergency department for evaluation s/p unwitnessed mechanical fall. Patient reports striking his head after falling and tripping with a LOC for 3 minutes. Denies neck pain. <Belkis Roe - Last Filed: 08/28/18 15:00> - Resident Resident Name: Cliff Gordon - ED Attending Attestation I have performed the following: I have examined & evaluated the patient, The case was reviewed & discussed with the resident, I agree w/resident's findings & plan, Exceptions are as noted - Physicial Exam PE: GENERAL: Awake, alert, and fully oriented, in no acute distress HEAD: Healing laceration to R forehead. No hematomas. EYES: PERRLA, EOMI, sclera anicteric, conjunctiva clear ENT: Auricles normal inspection, hearing grossly normal, nares patent, oropharynx clear without exudates. Moist mucosa NECK: Normal ROM, supple, no lymphadenopathy, JVD, or masses LUNGS: Breath sounds equal, clear to auscultation bilaterally. No wheezes, and no crackles HEART: Regular rate and rhythm, normal S1 and S2, no murmurs, rubs or gallops ABDOMEN: Soft, nontender, normoactive bowel sounds. No guarding, no rebound. No masses EXTREMITIES: Normal range of motion, no edema. No clubbing or cyanosis. No cords, erythema, or tenderness NEUROLOGICAL: Cranial nerves II through XII grossly intact. Normal speech, normal gait SKIN: Warm, Dry, normal turgor, no rashes or lesions noted. - Medical Decision Making CTH to r/o intracranial bleed is negative. Stable for DC back to [facility]. <Kenia Mccall - Last Filed: 08/28/18 16:07> Attestations - Attestations Documentation prepared by Belkis Roe, acting as medical care manager for Kenia Mccall MD. <Belkis Roe - Last Filed: 08/28/18 15:00>
[2018-08-28 15:46] VITALS: BP 128/71; PULSE 89; TEMP 98.3
== END 2018-08-28 17:23 | disposition home or self-care (01) ==
LOC: JER 11:50
DX: S06.9X9A Unspecified intracranial injury with loss of consciousness of unspecified duration, initial encounter (principal); W01.0XXA Fall on same level from slipping, tripping and stumbling without subsequent striking against object, initial encounter; Y93.89 Activity, other specified; Y92.239 Unspecified place in hospital as the place of occurrence of the external cause; Y99.8 Other external cause status; F11.10 Opioid abuse, uncomplicated; F10.10 Alcohol abuse, uncomplicated; F14.10 Cocaine abuse, uncomplicated
CPT/HCPCS: 70450-TC; 99282-25

== ENCOUNTER 2022-03-22 17:36 | Inpatient (IN) | payer OTHER ==
[2022-03-22 20:07] VITALS: BMI 228.3
[2022-03-22] MEDS ORDERED: BISMUTH SUBSALICYLATE 524 MG/30 ML PO PRN (22:40)
[2022-03-22] MEDS ORDERED: IBUPROFEN 400 MG TABLET (FP) PO PRN (22:40)
[2022-03-22] MEDS ORDERED: NICOTINE POLACRILEX 2 MG GUM BUC PRN (22:40)
[2022-03-22] MEDS ORDERED: MAGNESIUM HYDROX 2400MG/30ML ORAL SUSPENSION 30 ML CUP PO PRN (22:40)
[2022-03-22] MEDS ORDERED: MAG HYDROX/AL HYDROX/SIMETH 30 ML UNIT-DOSE CUP PO PRN (22:40)
[2022-03-22] MEDS ORDERED: ONDANSETRON *ODT* 4 MG TABLET SL PRN (22:40)
[2022-03-22] MEDS ORDERED: IBUPROFEN 600 MG TABLET (FP) PO PRN (22:40)
[2022-03-22] MEDS ORDERED: BENZOCAINE/MENTHOL (CHLORASEPTIC ) LOZENGE MM PRN (22:40)
[2022-03-22] MEDS ORDERED: LOPERAMIDE HCL 2 MG CAPSULE PO PRN (22:40)
[2022-03-22] MEDS ORDERED: MAGNESIUM CITRATE 300 ML BOTTLE PO PRN (22:40)
[2022-03-22] MEDS ORDERED: DICYCLOMINE HCL 10 MG CAPSULE PO PRN (22:40)
[2022-03-22] MEDS ORDERED: ACETAMINOPHEN 325 MG TABLET (FP) PO PRN ×2 (22:40)
[2022-03-22] MEDS ORDERED: methaDONE HCL 10 MG TABLET (FOR DETOX USE ONLY) PO ONE (22:43)
[2022-03-22] MEDS ORDERED: cloNIDine HCL 0.1 MG TABLET PO PRN (22:43)
[2022-03-23] MEDS ORDERED: methaDONE HCL 10 MG TABLET (FOR DETOX USE ONLY) ONE (09:37)
[2022-03-23 09:54] LABS: ALBUMIN 2.9 g/dl (3.4-5.0); BLOOD UREA NITROGEN 12.7 mg/dL (7-18); CALCIUM 8.5 mg/dL (8.5-10.1); HEMATOCRIT 40.3 % (35.4-49); HEMOGLOBIN 13.3 GM/dL (11.7-16.9); MEAN CELL VOLUME 88.1 fl (80-96); MEAN PLT VOLUME 8.3 fl (7.5-11.1); PLATELET COUNT 240 10^3/uL (134-434); RBC 4.57 M/mm3 (4.00-5.60); RDW 14.4 % (11.9-15.9); WHITE BLOOD COUNT 4.4 K/mm3 (4.0-10.0)
[2022-03-23] MEDS ORDERED: ALBUTEROL SO4 HFA INHALER IH PRN (09:54)
[2022-03-23 09:57] LABS: CREATININE 0.9 mg/dL (0.55-1.3)
[2022-03-23] MEDS ORDERED: LACTULOSE 20 GM/30 ML UDC (FOR ORAL USE ONLY) PO PRN (09:58)
[2022-03-23 09:59] LABS: BILIRUBIN,TOTAL 1.1 mg/dL (0.2-1); TOT PROT 5.8 g/dl (6.4-8.2)
[2022-03-23] MEDS: METHOCARBAMOL 500 MG TABLET PO PRN ×2 (13:08→22:32)
[2022-03-23] MEDS: NICOTINE 21 MG/24 HOURS TOPICAL PATCH TD SCH (13:08)
[2022-03-23] MEDS: PRENATAL VITAMINS W/ FOLIC ACID TABLET (FP) PO SCH (13:08)
[2022-03-23] MEDS: THIAMINE HCL 100 MG TABLET (FP) PO SCH (22:31)
[2022-03-23] MEDS: MELATONIN 5 MG TABLETS PO SCH (22:32)
[2022-03-24] MEDS ORDERED: methaDONE HCL 10 MG TABLET (FOR DETOX USE ONLY) PO ONE (10:00)
[2022-03-24] MEDS: METHOCARBAMOL 500 MG TABLET PO PRN (10:33)
[2022-03-24] MEDS: PRENATAL VITAMINS W/ FOLIC ACID TABLET (FP) PO SCH (10:33)
[2022-03-24] MEDS: NICOTINE 21 MG/24 HOURS TOPICAL PATCH TD SCH (10:34)
[2022-03-24] MEDS: TIOTROPIUM BROMIDE 2.5 MCG (SPIRIVA) RESPIMAT INHALER IH SCH (10:35)
[2022-03-24] MEDS: THIAMINE HCL 100 MG TABLET (FP) PO SCH (21:40)
[2022-03-24] MEDS: MELATONIN 5 MG TABLETS PO SCH (21:40)
[2022-03-25] MEDS ORDERED: methaDONE HCL 10 MG TABLET (FOR DETOX USE ONLY) ONE (09:27)
[2022-03-25] MEDS: METHOCARBAMOL 500 MG TABLET PO PRN (10:49)
[2022-03-25] MEDS: PRENATAL VITAMINS W/ FOLIC ACID TABLET (FP) PO SCH (10:49)
[2022-03-25] MEDS: NICOTINE 21 MG/24 HOURS TOPICAL PATCH TD SCH (10:50)
[2022-03-25] MEDS: TIOTROPIUM BROMIDE 2.5 MCG (SPIRIVA) RESPIMAT INHALER IH SCH (10:50)
[2022-03-25] MEDS: MELATONIN 5 MG TABLETS PO SCH (23:27)
[2022-03-25] MEDS: THIAMINE HCL 100 MG TABLET (FP) PO SCH (23:28)
[2022-03-26] MEDS ORDERED: methaDONE HCL 10 MG TABLET (FOR DETOX USE ONLY) PO ONE (10:00)
[2022-03-26] MEDS: NICOTINE 21 MG/24 HOURS TOPICAL PATCH TD SCH (10:29)
[2022-03-26] MEDS: TIOTROPIUM BROMIDE 2.5 MCG (SPIRIVA) RESPIMAT INHALER IH SCH (10:29)
[2022-03-26] MEDS: PRENATAL VITAMINS W/ FOLIC ACID TABLET (FP) PO SCH (10:29)
[2022-03-26] MEDS: THIAMINE HCL 100 MG TABLET (FP) PO SCH (23:48)
[2022-03-26] MEDS: MELATONIN 5 MG TABLETS PO SCH (23:48)
[2022-03-27 09:31] VITALS: BP 101/54; PULSE 62; TEMP 97.5
== END 2022-03-27 10:55 | disposition home or self-care (01) | DRG 773 ==
LOC: YASAS 17:36 → Y6N 23:05
PROVIDERS: ADMIT Allergy & Immunology; ATTEND Surgery
PROC: HZ2ZZZZ Detoxification Services for Substance Abuse Treatment (ICD-10-PCS; principal; 2022-03-22)
DX: F11.23 Opioid dependence with withdrawal (principal); F14.20 Cocaine dependence, uncomplicated; F12.20 Cannabis dependence, uncomplicated; F17.210 Nicotine dependence, cigarettes, uncomplicated; J45.20 Mild intermittent asthma, uncomplicated; R73.03 Prediabetes; Z88.0 Allergy status to penicillin
CPT/HCPCS: 36415; 80053; 82962; 85027; 86780; 87811; 93005; 93010; C9803-CS; J0735; U0003; U0005

== ENCOUNTER 2023-02-16 19:28 | Inpatient (IN) | payer OTHER ==
[2023-02-16 20:45] VITALS: BMI 21.9
[2023-02-16] MEDS ORDERED: guaiFENesin 600 MG TABLET.ER (FP) PO PRN (22:52)
[2023-02-16] MEDS ORDERED: POLYETHYLENE GLYCOL (HEALTHYLAX) 3350 17 GM PACKET PO PRN (22:52)
[2023-02-16] MEDS ORDERED: BISMUTH SUBSALICYLATE 524 MG/30 ML PO PRN (22:52)
[2023-02-16] MEDS ORDERED: MAGNESIUM HYDROX 2400MG/30ML ORAL SUSPENSION 30 ML CUP PO PRN (22:52)
[2023-02-16] MEDS ORDERED: IBUPROFEN 400 MG TABLET (FP) PO PRN (22:52)
[2023-02-16] MEDS ORDERED: LOPERAMIDE HCL 2 MG CAPSULE PO PRN (22:52)
[2023-02-16] MEDS ORDERED: DICYCLOMINE HCL 10 MG CAPSULE PO PRN (22:52)
[2023-02-16] MEDS ORDERED: BENZONATATE 200 MG CAPSULE PO PRN (22:52)
[2023-02-16] MEDS ORDERED: ONDANSETRON *ODT* 4 MG TABLET SL PRN (22:52)
[2023-02-16] MEDS ORDERED: ACETAMINOPHEN 325 MG TABLET (FP) PO PRN (22:52)
[2023-02-16] MEDS ORDERED: NALOXONE HCL 0.4 MG/ML VIAL IM PRN (22:52)
[2023-02-16] MEDS ORDERED: NALOXONE HCL (KLOXXADO) 8 MG SPRAY NS PRN (22:52)
[2023-02-16] MEDS ORDERED: MAG HYDROX/AL HYDROX/SIMETH 30 ML UNIT-DOSE CUP PO PRN (22:52)
[2023-02-16] MEDS ORDERED: BENZOCAINE/MENTHOL (CHLORASEPTIC ) LOZENGE MM PRN (22:52)
[2023-02-16] MEDS ORDERED: ALBUTEROL SO4 HFA INHALER IH PRN (22:57)
[2023-02-17] MEDS: INSULIN SLIDING SCALE (NOVOLOG) 1 VIAL SQ SCH ×2 (06:41→17:23)
[2023-02-17] MEDS ORDERED: cloNIDine HCL 0.1 MG TABLET PO PRN (08:44)
[2023-02-17] MEDS ORDERED: methaDONE HCL 10 MG TABLET (FOR DETOX USE ONLY) PO ONE (08:44)
[2023-02-17] MEDS: PRENATAL VITAMINS W/ FOLIC ACID TABLET (FP) PO SCH (09:17)
[2023-02-17] MEDS: METHOCARBAMOL 500 MG TABLET PO PRN (09:23)
[2023-02-17 11:03] LABS: HEMATOCRIT 40.4 % (35.4-49); HEMOGLOBIN 13.5 GM/dL (11.7-16.9); MCH 27.9 pg (25.7-33.7); MCHC 33.4 g/dl (32.0-35.9); MEAN CELL VOLUME 83.7 fl (80-96); MEAN PLT VOLUME 8.3 fl (7.5-11.1); PLATELET COUNT 267 10^3/uL (134-434); RBC 4.83 M/mm3 (4.00-5.60); WHITE BLOOD COUNT 3.8 K/mm3 (4.0-10.0)
[2023-02-17 11:12] LABS: POTASSIUM 3.7 mmol/L (3.5-5.1)
[2023-02-17 11:20] LABS: ALBUMIN 3.5 g/dl (3.4-5.0)
[2023-02-17 11:21] LABS: CALCIUM 9.1 mg/dL (8.5-10.1)
[2023-02-17 11:22] LABS: BLOOD UREA NITROGEN 13.4 mg/dL (7-18)
[2023-02-17 11:23] LABS: CREATININE 0.7 mg/dL (0.55-1.3)
[2023-02-17 11:25] LABS: BILIRUBIN,TOTAL 1.8 mg/dL (0.2-1); TOT PROT 6.7 g/dl (6.4-8.2)
[2023-02-17] MEDS: MELATONIN 5 MG TABLETS PO SCH (22:31)
[2023-02-17] MEDS: THIAMINE HCL 100 MG TABLET (FP) PO SCH (22:31)
[2023-02-18] MEDS: INSULIN SLIDING SCALE (NOVOLOG) 1 VIAL SQ SCH ×2 (06:13→17:08)
[2023-02-18] MEDS: METHOCARBAMOL 500 MG TABLET PO PRN (10:05)
[2023-02-18] MEDS: PRENATAL VITAMINS W/ FOLIC ACID TABLET (FP) PO SCH (10:05)
[2023-02-18] MEDS: IBUPROFEN 600 MG TABLET (FP) PO PRN (10:06)
[2023-02-18] MEDS: TIOTROPIUM BROMIDE 2.5 MCG (SPIRIVA) RESPIMAT INHALER IH SCH (15:14)
[2023-02-18] MEDS: FAMOTIDINE 20 MG TABLET PO SCH (22:22)
[2023-02-18] MEDS: MELATONIN 5 MG TABLETS PO SCH (22:22)
[2023-02-18] MEDS: THIAMINE HCL 100 MG TABLET (FP) PO SCH (22:22)
[2023-02-19] MEDS: INSULIN SLIDING SCALE (NOVOLOG) 1 VIAL SQ SCH ×2 (06:20→17:56)
[2023-02-19] MEDS ORDERED: methaDONE HCL 10 MG TABLET (FOR DETOX USE ONLY) PO ONE (10:00)
[2023-02-19] MEDS: PRENATAL VITAMINS W/ FOLIC ACID TABLET (FP) PO SCH (10:11)
[2023-02-19] MEDS: FAMOTIDINE 20 MG TABLET PO SCH ×2 (10:11→22:41)
[2023-02-19] MEDS: TIOTROPIUM BROMIDE 2.5 MCG (SPIRIVA) RESPIMAT INHALER IH SCH (10:14)
[2023-02-19] MEDS: METHOCARBAMOL 500 MG TABLET PO PRN ×2 (14:59→22:41)
[2023-02-19] MEDS: IBUPROFEN 600 MG TABLET (FP) PO PRN (14:59)
[2023-02-19] MEDS: THIAMINE HCL 100 MG TABLET (FP) PO SCH (22:40)
[2023-02-19] MEDS: MELATONIN 5 MG TABLETS PO SCH (22:41)
[2023-02-20] MEDS: METHOCARBAMOL 500 MG TABLET PO PRN ×2 (07:02→22:22)
[2023-02-20] MEDS: IBUPROFEN 600 MG TABLET (FP) PO PRN ×3 (07:02→22:21)
[2023-02-20] MEDS: INSULIN SLIDING SCALE (NOVOLOG) 1 VIAL SQ SCH ×2 (07:14→17:46)
[2023-02-20] MEDS: TIOTROPIUM BROMIDE 2.5 MCG (SPIRIVA) RESPIMAT INHALER IH SCH (10:23)
[2023-02-20] MEDS: PRENATAL VITAMINS W/ FOLIC ACID TABLET (FP) PO SCH (10:23)
[2023-02-20] MEDS: FAMOTIDINE 20 MG TABLET PO SCH ×2 (10:23→22:22)
[2023-02-20] MEDS: MELATONIN 5 MG TABLETS PO SCH (22:22)
[2023-02-20] MEDS: THIAMINE HCL 100 MG TABLET (FP) PO SCH (22:22)
[2023-02-21] MEDS: INSULIN SLIDING SCALE (NOVOLOG) 1 VIAL SQ SCH ×2 (06:21→17:30)
[2023-02-21] MEDS ORDERED: methaDONE HCL 10 MG TABLET (FOR DETOX USE ONLY) PO ONE (10:00)
[2023-02-21] MEDS: TIOTROPIUM BROMIDE 2.5 MCG (SPIRIVA) RESPIMAT INHALER IH SCH (10:11)
[2023-02-21] MEDS: METHOCARBAMOL 500 MG TABLET PO PRN (10:12)
[2023-02-21] MEDS: PRENATAL VITAMINS W/ FOLIC ACID TABLET (FP) PO SCH (10:12)
[2023-02-21] MEDS: FAMOTIDINE 20 MG TABLET PO SCH ×2 (10:13→23:38)
[2023-02-21] MEDS: THIAMINE HCL 100 MG TABLET (FP) PO SCH (23:38)
[2023-02-21] MEDS: MELATONIN 5 MG TABLETS PO SCH (23:38)
[2023-02-22] MEDS: INSULIN SLIDING SCALE (NOVOLOG) 1 VIAL SQ SCH (06:29)
[2023-02-22 09:43] VITALS: BP 128/71; PULSE 70; RESP 18; TEMP 98.1
[2023-02-22] MEDS: PRENATAL VITAMINS W/ FOLIC ACID TABLET (FP) PO SCH (10:52)
[2023-02-22] MEDS: TIOTROPIUM BROMIDE 2.5 MCG (SPIRIVA) RESPIMAT INHALER IH SCH (10:52)
[2023-02-22] MEDS: FAMOTIDINE 20 MG TABLET PO SCH (10:52)
== END 2023-02-22 11:05 | disposition other institution (70) | DRG 773 ==
LOC: YASAS 19:28 → Y6N 02-17 01:58
PROVIDERS: ADMIT Allergy & Immunology; ATTEND Surgery
PROC: HZ2ZZZZ Detoxification Services for Substance Abuse Treatment (ICD-10-PCS; principal; 2023-02-17)
DX: F11.23 Opioid dependence with withdrawal (principal); F14.20 Cocaine dependence, uncomplicated; F17.210 Nicotine dependence, cigarettes, uncomplicated; J45.20 Mild intermittent asthma, uncomplicated; K21.9 Gastro-esophageal reflux disease without esophagitis; R73.03 Prediabetes; Z56.0 Unemployment, unspecified; Z59.00 Homelessness unspecified; Z88.0 Allergy status to penicillin
CPT/HCPCS: 36415; 80053; 82962; 85027; 86780; C9803-CS; U0003; U0005

== ENCOUNTER 2024-04-10 12:14 | Inpatient (IN) | payer OTHER ==
[2024-04-10 13:11] VITALS: BMI 19.3
[2024-04-10] MEDS ORDERED: MAGNESIUM HYDROX 2400MG/30ML ORAL SUSPENSION 30 ML CUP PO PRN (15:56)
[2024-04-10] MEDS ORDERED: IBUPROFEN 600 MG TABLET (FP) PO PRN (15:56)
[2024-04-10] MEDS ORDERED: NALOXONE HCL 0.4 MG/ML VIAL IM PRN (15:56)
[2024-04-10] MEDS ORDERED: ACETAMINOPHEN 325 MG TABLET (FP) PO PRN (15:56)
[2024-04-10] MEDS ORDERED: NALOXONE (NARCAN) HCL 4 MG/0.1 ML SPRAY NS PRN (15:56)
[2024-04-10] MEDS ORDERED: BISMUTH SUBSALICYLATE 524 MG/30 ML PO PRN (15:56)
[2024-04-10] MEDS ORDERED: LOPERAMIDE HCL 2 MG CAPSULE PO PRN (15:56)
[2024-04-10] MEDS ORDERED: BENZONATATE 200 MG CAPSULE PO PRN (15:56)
[2024-04-10] MEDS ORDERED: BENZOCAINE/MENTHOL (CHLORASEPTIC ) LOZENGE MM PRN (15:56)
[2024-04-10] MEDS ORDERED: MAG HYDROX/AL HYDROX/SIMETH 30 ML UNIT-DOSE CUP PO PRN (15:56)
[2024-04-10] MEDS ORDERED: IBUPROFEN 400 MG TABLET (FP) PO PRN (15:56)
[2024-04-10] MEDS ORDERED: guaiFENesin 600 MG TABLET.ER (FP) PO PRN (15:56)
[2024-04-10] MEDS ORDERED: NICOTINE POLACRILEX 2 MG GUM BUC PRN (15:56)
[2024-04-10] MEDS ORDERED: POLYETHYLENE GLYCOL (HEALTHYLAX) 3350 17 GM PACKET PO PRN (15:56)
[2024-04-10] MEDS ORDERED: cloNIDine HCL 0.1 MG TABLET PO PRN (15:58)
[2024-04-10] MEDS ORDERED: methaDONE HCL 10 MG TABLET (FOR DETOX USE ONLY) PO ONE (15:58)
[2024-04-10] MEDS ORDERED: ALBUTEROL SO4 HFA INHALER IH PRN (15:59)
[2024-04-10] MEDS: methaDONE HCL 10 MG TABLET (FOR DETOX USE ONLY) PO ONE (17:34)
[2024-04-10] MEDS: FAMOTIDINE 20 MG TABLET PO SCH (22:56)
[2024-04-10] MEDS: THIAMINE 100 MG TABLET PO SCH (22:56)
[2024-04-10] MEDS: MELATONIN 5 MG TABLETS PO SCH (22:56)
[2024-04-11] MEDS: ONDANSETRON *ODT* 4 MG TABLET SL PRN (05:30)
[2024-04-11] MEDS: NICOTINE 21 MG/24 HOURS TOPICAL PATCH TD SCH (09:32)
[2024-04-11] MEDS: PRENATAL VITAMINS W/ FOLIC ACID TABLET (FP) PO SCH (09:33)
[2024-04-11 17:11] LABS: CHLORIDE 102 mmol/L (98-107); POTASSIUM 4.7 mmol/L (3.5-5.1); SODIUM 137 mmol/L (136-145)
[2024-04-11 17:13] LABS: ALBUMIN 3.3 g/dl (3.4-5.0); ANION GAP 8 mmol/L (4-13); CO2 27 mmol/L (21-32)
[2024-04-11 17:14] LABS: BLOOD UREA NITROGEN 21.1 mg/dL (7-18); GLUCOSE,RANDOM 76 mg/dL (74-106)
[2024-04-11 17:16] LABS: SGOT/AST 23 U/L (15-37)
[2024-04-11 17:17] LABS: SGPT/ALT 18 U/L (13-61)
[2024-04-11 17:18] LABS: BILIRUBIN,TOTAL 1.2 mg/dL (0.2-1); TOT PROT 7.6 g/dl (6.4-8.2)
[2024-04-11 17:19] LABS: ALK PHOS 100 U/L (45-117)
[2024-04-12] MEDS: methaDONE HCL 10 MG TABLET (FOR DETOX USE ONLY) PO ONE (09:12)
[2024-04-13 14:10] LABS: HEMOGLOBIN 13.4 GM/dL (11.7-16.9); MCH 27.7 pg (25.7-33.7); MCHC 32.6 g/dl (32.0-35.9); MEAN PLT VOLUME 8.5 fl (7.5-11.1); PLATELET COUNT 357 10^3/uL (134-434); RBC 4.83 M/mm3 (4.00-5.60); RDW 15.6 % (11.9-15.9); WHITE BLOOD COUNT 2.8 K/mm3 (4.0-10.0)
[2024-04-14] MEDS: methaDONE HCL 10 MG TABLET (FOR DETOX USE ONLY) PO ONE (10:09)
[2024-04-16 09:18] VITALS: BP 108/61; PULSE 92; RESP 16; TEMP 98
== END 2024-04-16 11:13 | disposition home or self-care (01) | DRG 773 ==
LOC: YASAS 12:14 → Y6N 16:30
PROVIDERS: ADMIT Allergy & Immunology; ATTEND Surgery
PROC: HZ2ZZZZ Detoxification Services for Substance Abuse Treatment (ICD-10-PCS; principal; 2024-04-10)
DX: F11.23 Opioid dependence with withdrawal (principal); F14.20 Cocaine dependence, uncomplicated; F12.20 Cannabis dependence, uncomplicated; F17.210 Nicotine dependence, cigarettes, uncomplicated; J45.20 Mild intermittent asthma, uncomplicated; K21.9 Gastro-esophageal reflux disease without esophagitis; Z56.0 Unemployment, unspecified; Z59.00 Homelessness unspecified; Z88.0 Allergy status to penicillin
CPT/HCPCS: 36415; 80053; 80305; 80307; 85027; 86780; 93005; 93010; Q0162